=== PATIENT | female | born 1960 | race Caucasian/White ===

== ENCOUNTER 2017-09-05 08:00 | Outpatient (CLI) | payer OTHER ==
[2017-09-05 16:07] LABS: EOSINOPHILS # (AUTO) 0.1 10^3/uL (0.0-0.7); HCT - HEMATOCRIT 41.9 % (37.0-47.0); HGB - HEMOGLOBIN 13.7 g/dL (12.0-16.0); LYMPHOCYTES # (AUTO) 1.1 10^3/uL (1.5-3.5); LYMPHOCYTES % (AUTO) 23.5 %; MEAN CORPUSCULAR HEMOGLOBIN 28.8 pg (27.0-31.0); MEAN CORPUSCULAR HGB CONC 32.6 g/dL (32.0-36.0); MEAN CORPUSCULAR VOLUME 88.3 fL (81.0-99.0); MEAN PLATELET VOLUME 8.9 fL (7.9-10.8); MONOCYTES # (AUTO) 0.5 10^3/uL (0.0-1.0); MONOCYTES % (AUTO) 10.5 %; NEUTROPHILS # (AUTO) 2.9 10^3/uL (1.5-6.6); RED BLOOD COUNT 4.75 10^6/uL (4.20-5.40); RED CELL DISTRIBUTION WIDTH 14.2 % (12.0-15.0); UNCORRECTED WHITE BLOOD COUNT 4.6 x10^3/uL; WHITE BLOOD COUNT 4.6 x10^3/uL (4.8-10.8)
[2017-09-05 17:03] LABS: ALBUMIN/GLOBULIN RATIO 1.4 (1.0-2.2); BILIRUBIN,TOTAL 0.4 mg/dL (0.2-1.0); BUN - BLOOD UREA NITROGEN 10 mg/dL (6-20); CALCIUM 8.6 mg/dL (8.5-10.3); CARBON DIOXIDE - CO2 24 mmol/L (21-32); CHLORIDE 108 mmol/L (101-111); CHOL/HDL RATIO 1.9 (<4.4); CHOLESTEROL 146 mg/dL; CREATININE 0.6 mg/dL (0.4-1.0); GFR - MDRD 104 (>89); GLUCOSE 87 mg/dL (70-100); HDL CHOLESTEROL 78 mg/dL; LDL/HDL RATIO 0.8 (<4.4); POTASSIUM 4.1 mmol/L (3.5-5.0); SODIUM 139 mmol/L (135-145); TOTAL PROTEIN 6.6 g/dL (6.7-8.2); TRIGLYCERIDES 46 mg/dL; VLDL CHOLESTEROL 9 mg/dL
[2017-09-05 17:25] LABS: HEMOGLOBIN A1C 0.5 g/dL
== END 2017-09-05 08:01 | disposition home or self-care (01) ==
LOC: LAB.WCP 08:00
PROVIDERS: ATTEND Family Medicine
DX: Z00.00 Encounter for general adult medical examination without abnormal findings (principal)
CPT/HCPCS: 36415; 80053; 80061; 83036; 84443; 85025

== ENCOUNTER 2017-10-15 12:52 | Outpatient (CLI) | payer OTHER ==
--- NOTE | 2017-10-17 08:54 | Mammography Report ---
DATE OF SERVICE: 10/15/2017 DIGITAL BILATERAL SCREENING MAMMOGRAM: 10/15/2017 COMPARISON: Mammogram 04/12/2016. INDICATION: Screening mammography. TECHNIQUE: Bilateral CC and MLO breast views. FINDINGS: The breast parenchyma is heterogeneously dense, which may limit the sensitivity of mammography. No dominant mass, architectural distortion, or concerning cluster of microcalcifications is seen. IMPRESSION: BIRADS category: 1, negative. RECOMMENDATION: Annual screening mammogram. STANDARD QUALIFYING STATEMENTS 1. This examination was reviewed with the aid of Computed-Aided Detection (CAD) . 2. A negative or benign imaging report should not delay biopsy if clinically suspicious findings are present. Consider surgical consultation if warranted. More than 5% of cancers are not identified by imaging. 3. Dense breasts may obscure an underlying neoplasm. TD: 10/16/2017 18:40 ROSAS
== END 2017-10-15 12:53 | disposition home or self-care (01) ==
LOC: DI 12:52
PROVIDERS: ATTEND Family Medicine
DX: Z12.31 Encounter for screening mammogram for malignant neoplasm of breast (principal)
CPT/HCPCS: 77067

== ENCOUNTER 2018-09-17 10:49 | Outpatient (CLI) | payer OTHER ==
[2018-09-17 11:19] LABS: BASOPHILS % (AUTO) 0.6 %; EOSINOPHILS # (AUTO) 0.1 10^3/uL (0.0-0.7); EOSINOPHILS % (AUTO) 2.2 %; HGB - HEMOGLOBIN 13.7 g/dL (12.0-16.0); LYMPHOCYTES # (AUTO) 1.2 10^3/uL (1.5-3.5); LYMPHOCYTES % (AUTO) 23.7 %; MEAN CORPUSCULAR HEMOGLOBIN 29.7 pg (27.0-31.0); MEAN CORPUSCULAR HGB CONC 33.6 g/dL (32.0-36.0); MEAN CORPUSCULAR VOLUME 88.5 fL (81.0-99.0); MEAN PLATELET VOLUME 7.7 fL (7.9-10.8); MONOCYTES # (AUTO) 0.4 10^3/uL (0.0-1.0); MONOCYTES % (AUTO) 7.4 %; NEUTROPHILS # (AUTO) 3.4 10^3/uL (1.5-6.6); NEUTROPHILS % (AUTO) 66.1 %; PLT - PLATELET COUNT 194 10^3/uL (130-450); RED BLOOD COUNT 4.62 10^6/uL (4.20-5.40); RED CELL DISTRIBUTION WIDTH 13.9 % (12.0-15.0); WHITE BLOOD COUNT 5.2 x10^3/uL (4.8-10.8)
[2018-09-17 11:38] LABS: ALBUMIN 4.6 g/dL (3.2-5.5); ALBUMIN/GLOBULIN RATIO 1.7 (1.0-2.2); ALKALINE PHOSPHATASE 95 IU/L (42-121); ALT ALANINE AMINOTRANSFERASE 14 IU/L (10-60); AST ASPARTATE AMINOTRANSFERASE 17 IU/L (10-42); BILIRUBIN,TOTAL 0.8 mg/dL (0.2-1.0); BUN - BLOOD UREA NITROGEN 14 mg/dL (6-20); CALCIUM 9.3 mg/dL (8.5-10.3); CARBON DIOXIDE - CO2 28 mmol/L (21-32); CHLORIDE 104 mmol/L (101-111); CHOL/HDL RATIO 2.3 (<4.4); CHOLESTEROL 163 mg/dL; CREATININE 0.6 mg/dL (0.4-1.0); GFR - MDRD 103 (>89); GLUCOSE 92 mg/dL (70-100); HDL CHOLESTEROL 70 mg/dL; LDL CHOLESTEROL,CALCULATED 82 mg/dL; LDL/HDL RATIO 1.2 (<4.4); SODIUM 138 mmol/L (135-145); TOTAL PROTEIN 7.3 g/dL (6.7-8.2); VLDL CHOLESTEROL 11 mg/dL
[2018-09-17 11:39] LABS: HB2 TOTAL 14.8 g/dL; HEMOGLOBIN A1C 0.49 g/dL; HEMOGLOBIN A1C % 5.2 % (4.6-6.2)
== END 2018-09-17 10:50 | disposition home or self-care (01) ==
LOC: LAB 10:49
PROVIDERS: ATTEND Family Medicine
DX: Z00.00 Encounter for general adult medical examination without abnormal findings (principal); R07.9 Chest pain, unspecified
CPT/HCPCS: 36415; 80053; 80061; 83036; 83721; 84443; 84484; 85025

== ENCOUNTER 2018-09-25 10:49 | Outpatient (CLI) | payer OTHER ==
[2018-09-25] MEDS ORDERED: REGADENOSON 0.4 MG/5 ML SYRINGE IVP ONE (13:33)
--- NOTE | 2018-09-25 15:15 | CARDIAC PROCEDURE NOTE ---
DATE OF SERVICE: 09/25/2018 Physician: Mera Panchal MD, [facility] INDICATION: Chest pain. CARDIAC RISK FACTORS: Hypertension, family history of heart disease. SUMMARY: After signing informed consent, the patient underwent a Lexiscan pharmaceutical stress test with nuclear myocardial imaging. Resting heart rate: 76, peak heart rate: 118. Resting blood pressure: 150/84, peak blood pressure: 163/82 (the patient did not take her Metoprolol earlier this day). Lexiscan was infused per protocol. The patient developed brief shortness of breath, flushing and a headache, which subsided spontaneously at 4 minutes. The patient had 2/10 chest pain pretest and it was unchanged throughout the entire test and continued after testing was done. RESTING EKG: Normal sinus rhythm, within normal limits. EKG AT [facility]: [address] depressions in leads II, III, AVF, and V3 - V4, and [address] depression in V5 - V6. SUMMARY 1. Blood pressure poorly controlled on this day because of not taking Metoprolol. 2. Significant ischemia by EKG criteria, on this pharmaceutical stress test. 3. Atypical chest pain for angina, as it was present pre, during and post testing. 4. Nuclear images reported separately. cc: Shawanda Interiano MD TD: 09/25/2018 14:01 MTDD
--- NOTE | 2018-09-25 16:33 | Nuclear Medicine Report ---
Reason: CHEST PAIN Procedure Date: 09/25/2018 Accession Number: [id number] / [id number] Procedure: NM - Myocardial Perfusion STR/RST CPT Code: FULL RESULT: EXAM: SINGLE-ISOTOPE PHARMACOLOGICAL STRESS TEST WITH REGADENOSON. SINGLE-ISOTOPE AND ONE-DAY REST/STRESS MYOCARDIAL PERFUSION SCANS WITH TOMOGRAPHIC IMAGING, QUANTITATIVE ANALYSIS, WALL MOTION ANALYSIS AND CALCULATION OF EJECTION FRACTION. EXAM DATE: 09/25/2018 03:52 PM. CLINICAL HISTORY: CHEST PAIN. COMPARISON: None available. TECHNIQUE: After the intravenous administration of 9.9 mCi of Tc-99m sestamibi, a rest myocardial perfusion scan was done with tomography. Motion correction was applied when appropriate. After an appropriate delay, pharmacological stress was performed with the infusion of 0.4 mg regadenoson per protocol. According to protocol, 37 mCi of Tc-99m sestamibi was injected for stress myocardial perfusion scan. Motion correction was applied when appropriate. Gated tomographic images were obtained for wall motion analysis and computation of left ventricular ejection fraction. FINDINGS: On visual analysis, no convincing significant fixed or reversible perfusion defects. Computer analysis: Summed stress score 6 Summed rest score 1 Summed difference score 5 Wall motion analysis demonstrates no focal wall motion abnormality. The left ventricular end-diastolic volume is 38 cc. The left ventricular end-systolic volume is 4 cc. The left ventricular ejection fraction is calculated to be 89%. IMPRESSION: 1. On visual analysis, no convincing significant fixed or reversible perfusion defects. 2. Left ventricular ejection fraction of 89% (probably an overestimate). 3. Normal segmental and global wall motion. 4. Normal left ventricular cavity size, no change with stress. 5. Based on computer analysis, mildly abnormal study with moderate ischemia. RADIA
== END 2018-09-25 10:50 | disposition home or self-care (01) ==
LOC: DI 10:49
PROVIDERS: ATTEND Family Medicine
DX: I25.9 Chronic ischemic heart disease, unspecified (principal); I10 Essential (primary) hypertension; Z82.49 Family history of ischemic heart disease and other diseases of the circulatory system
CPT/HCPCS: 78452; 93017; A9500; J2785

== ENCOUNTER 2018-10-16 16:23 | Outpatient (CLI) | payer OTHER | END 2018-10-16 16:24 | disposition home or self-care (01) | LOC: LAB 16:23 | PROVIDERS: ATTEND Family Medicine | DX: R06.09 Other forms of dyspnea (principal); R07.9 Chest pain, unspecified | CPT/HCPCS: 36415; 85379; 85651; 86140 ==

== ENCOUNTER 2018-11-19 16:52 | Outpatient (CLI) | payer OTHER ==
--- NOTE | 2018-11-23 13:08 | Mammography Report ---
Reason: Annual Screening Procedure Date: 11/19/2018 Accession Number: [id number] / [id number] Procedure: [facility] - Screening Mammo w/Vishal CPT Code: FULL RESULT: EXAM: Screening Mammo w/Vishal DATE: 11/19/2018 5:20 PM CLINICAL HISTORY: Routine screening TECHNIQUE: Bilateral CC and MLO views were obtained. COMPARISON: 10/15/2017, 04/12/2016, 06/14/2015, 06/01/2015, and 03/24/2014 FINDINGS: There are scattered fibroglandular densities. There has been a progressive increase in fatty replacement of the breast tissue.. No new suspicious masses, clustered microcalcifications, or regions of architectural distortion are identified. IMPRESSION: Benign findings RECOMMENDATION: Routine annual screening unless otherwise clinically indicated. BIRADS CATEGORY 2: Benign findings STANDARD QUALIFYING STATEMENTS: 1. This examination was not reviewed with the aid of Computer-Aided Detection (CAD). 2. A negative or benign imaging report should not delay biopsy if clinically suspicious findings are present. Consider surgical consultation if warrented. More than 5% of cancers are not identified by imaging. 3. Dense breasts may obscure an underlying neoplasm. 4. This examination was reviewed with the aid of 3D breast imaging (tomosynthesis).
== END 2018-11-19 16:53 | disposition home or self-care (01) ==
LOC: DI 16:52
DX: Z12.31 Encounter for screening mammogram for malignant neoplasm of breast (principal)
CPT/HCPCS: 77063; 77067

== ENCOUNTER 2019-04-08 10:46 | Outpatient (CLI) | payer OTHER ==
[2019-04-08] MEDS ORDERED: IOVERSOL 320 50 ML VIAL ONE (10:57)
[2019-04-08] MEDS ORDERED: IOVERSOL 320 100 ML VIAL IVP ONE ×2 (10:57→13:23)
[2019-04-08 11:10] LABS: BASOPHILS % (AUTO) 0.4 %; EOSINOPHILS # (AUTO) 0.2 10^3/uL (0.0-0.7); EOSINOPHILS % (AUTO) 2.1 %; LYMPHOCYTES # (AUTO) 1.6 10^3/uL (1.5-3.5); LYMPHOCYTES % (AUTO) 22.1 %; MEAN CORPUSCULAR HGB CONC 31.9 g/dL (32.0-36.0); MEAN CORPUSCULAR VOLUME 91.1 fL (81.0-99.0); MEAN PLATELET VOLUME 10.1 fL (7.9-10.8); MONOCYTES # (AUTO) 0.6 10^3/uL (0.0-1.0); MONOCYTES % (AUTO) 8.4 %; NEUTROPHILS # (AUTO) 4.7 10^3/uL (1.5-6.6); NEUTROPHILS % (AUTO) 66.9 %; PLT - PLATELET COUNT 175 10^3/uL (130-450); RED BLOOD COUNT 4.82 10^6/uL (4.20-5.40); RED CELL DISTRIBUTION WIDTH 14.3 % (12.0-15.0)
[2019-04-08 11:28] LABS: ALBUMIN 4.5 g/dL (3.2-5.5); ALBUMIN/GLOBULIN RATIO 1.5 (1.0-2.2); BILIRUBIN,TOTAL 0.6 mg/dL (0.2-1.0); CALCIUM 9.9 mg/dL (8.5-10.3); CREATININE 0.6 mg/dL (0.4-1.0); TOTAL PROTEIN 7.5 g/dL (6.7-8.2)
--- NOTE | 2019-04-08 12:29 | CT Report ---
Reason: ABDOMINAL PAIN,LEFT UPPER QUADRANT,PULSATILE ABODM Procedure Date: 04/08/2019 Accession Number: [id number] / [id number] Procedure: CT - Abdomen/Pelvis W CPT Code: FULL RESULT: EXAM: CT ABDOMEN AND PELVIS EXAM DATE: 04/08/2019 12:04 PM. CLINICAL HISTORY: Abdominal pain, left upper quadrant, pulsatile abdomen. COMPARISONS: None. TECHNIQUE: Routine helical CT imaging was performed through the abdomen and pelvis. IV contrast: 100 mL Omnipaque 320. Enteric contrast: Yes. Reconstructions: Coronal and sagittal. In accordance with CT protocol optimization, one or more of the following dose reduction techniques were utilized for this exam: automated exposure control, adjustment of mA and/or KV based on patient size, or use of iterative reconstructive technique. FINDINGS: Lung Bases: Unremarkable. Liver: Normal. No masses. Gallbladder/Bile Ducts: Unremarkable. Spleen: Normal. Pancreas: Normal. Adrenal Glands: Normal. Kidneys: Normal. No masses or hydronephrosis. Peritoneal Cavity/Bowel: There is no bowel obstruction. There is no free fluid or free air. There is no lymphadenopathy. The appendix is not visualized; however, there are no inflammatory changes in the region of the cecum and there is no nearby mesenteric lymphadenopathy. Pelvic Organs: The bladder is markedly distended. The bladder and visualized pelvic organs are within normal limits. Vasculature: No aneurysms or other significant abnormality. Bones: No significant abnormality. Other: None. IMPRESSION: No evidence of abdominal aortic aneurysm. Markedly distended urinary bladder. RADIA
[2019-04-08] MEDS ORDERED: IOVERSOL 320 50 ML VIAL PO ONE (13:23)
[2019-04-08 16:36] LABS: H. PYLORIS ANTIGEN STL NEGATIVE (Negative)
== END 2019-04-08 10:47 | disposition home or self-care (01) ==
LOC: DI 10:46
PROVIDERS: ATTEND Family Medicine
DX: R10.12 Left upper quadrant pain (principal); R19.00 Intra-abdominal and pelvic swelling, mass and lump, unspecified site; R07.9 Chest pain, unspecified; I10 Essential (primary) hypertension; N32.89 Other specified disorders of bladder
CPT/HCPCS: 36415; 74177; 80053; 82150; 83690; 85025; 87338; Q9967

== ENCOUNTER 2019-07-14 10:24 | Day surgery (SDC) | payer OTHER ==
[2019-07-14] MEDS ORDERED: LACTATED RINGERS 1,000 ML IV ONE (11:26)
[2019-07-14] MEDS ORDERED: BENZOCAINE/TETRACAINE/BUTAMBEN 20 GM TOP ONE (12:45)
[2019-07-14] MEDS ORDERED: LIDO GARGLE 30 ML BOTTLE TOP ONE (12:45)
[2019-07-14] MEDS ORDERED: LIDO GARGLE 30 ML BOTTLE ONE (12:56)
[2019-07-14 13:41] VITALS: BP 111/65
== END 2019-07-14 10:25 | disposition home or self-care (01) ==
LOC: SDS 10:24
PROVIDERS: ATTEND Surgery
PROC: 0DB68ZX Excision of Stomach, Via Natural or Artificial Opening Endoscopic, Diagnostic (ICD-10-PCS; 2019-07-14)
PROC: 0DB98ZX Excision of Duodenum, Via Natural or Artificial Opening Endoscopic, Diagnostic (ICD-10-PCS; principal; 2019-07-14 11:15)
DX: K44.9 Diaphragmatic hernia without obstruction or gangrene (principal); K22.0 Achalasia of cardia; K21.9 Gastro-esophageal reflux disease without esophagitis; I10 Essential (primary) hypertension
CPT/HCPCS: 43239; A9270; J7120

== ENCOUNTER 2019-10-28 17:11 | Outpatient (CLI) | payer OTHER ==
[2019-10-28 17:30] LABS: BILIRUBIN,URINE NEGATIVE (NEGATIVE); GLUCOSE, URINE (UA) NEGATIVE (NEGATIVE); KETONES,URINE (UA) NEGATIVE (NEGATIVE); LEUKOCYTE ESTERASE, URINE NEGATIVE (NEGATIVE); NITRITE,URINE NEGATIVE (NEGATIVE); OCCULT BLOOD,URINE TRACE-LYSE (NEGATIVE); PROTEIN,URINE NEGATIVE (NEGATIVE); UROBILINOGEN,URINE 0.2 (NORMAL) E.U./dL (NORMAL)
[2019-10-28 17:35] LABS: CLARITY,URINE CLEAR (CLEAR)
== END 2019-10-28 17:12 | disposition home or self-care (01) ==
LOC: LAB 17:11
PROVIDERS: ATTEND Psychiatry & Neurology Neurology
DX: G35 Multiple sclerosis (principal)
CPT/HCPCS: 81001; 81003; 87086

== ENCOUNTER 2019-11-11 16:40 | Outpatient (CLI) | payer OTHER ==
[2019-11-11 17:02] LABS: BILIRUBIN,URINE NEGATIVE (NEGATIVE); GLUCOSE, URINE (UA) NEGATIVE (NEGATIVE); KETONES,URINE (UA) NEGATIVE (NEGATIVE); LEUKOCYTE ESTERASE, URINE SMALL (NEGATIVE); NITRITE,URINE NEGATIVE (NEGATIVE); OCCULT BLOOD,URINE TRACE-INTA (NEGATIVE); PH,URINE 6.5 PH (5.0-7.5); PROTEIN,URINE NEGATIVE (NEGATIVE); UROBILINOGEN,URINE 0.2 (NORMAL) E.U./dL (NORMAL)
[2019-11-11 17:13] LABS: CLARITY,URINE CLEAR (CLEAR); RBC,URINE None Seen /HPF (0-5); SQUAMOUS EPITHELIAL CELL,UR RARE Squamous (<= Few); WBC CLUMPS,URINE PRESENT
[2019-11-11 17:14] LABS: BACTERIA,URINE None Seen /HPF (None Seen)
== END 2019-11-11 16:41 | disposition home or self-care (01) ==
LOC: LAB 16:40
PROVIDERS: ATTEND Psychiatry & Neurology Neurology
DX: G35 Multiple sclerosis (principal)
CPT/HCPCS: 81001; 87086

== ENCOUNTER 2020-03-30 16:22 | Outpatient (CLI) | payer OTHER ==
[2020-03-30 17:06] LABS: BASOPHILS % (AUTO) 0.5 %; EOSINOPHILS # (AUTO) 0.2 10^3/uL (0.0-0.7); EOSINOPHILS % (AUTO) 2.8 %; HGB - HEMOGLOBIN 13.7 g/dL (12.0-16.0); LYMPHOCYTES # (AUTO) 1.3 10^3/uL (1.5-3.5); LYMPHOCYTES % (AUTO) 22.4 %; MEAN CORPUSCULAR HEMOGLOBIN 30.3 pg (27.0-31.0); MEAN CORPUSCULAR HGB CONC 33.2 g/dL (32.0-36.0); MEAN CORPUSCULAR VOLUME 91.4 fL (81.0-99.0); MEAN PLATELET VOLUME 9.9 fL (7.9-10.8); MONOCYTES # (AUTO) 0.6 10^3/uL (0.0-1.0); MONOCYTES % (AUTO) 10.7 %; NEUTROPHILS # (AUTO) 3.8 10^3/uL (1.5-6.6); NEUTROPHILS % (AUTO) 63.3 %; PLT - PLATELET COUNT 202 10^3/uL (130-450); RED BLOOD COUNT 4.52 10^6/uL (4.20-5.40); RED CELL DISTRIBUTION WIDTH 13.8 % (12.0-15.0)
== END 2020-03-30 16:23 | disposition home or self-care (01) ==
LOC: LAB 16:22
PROVIDERS: ATTEND Psychiatry & Neurology Neurology
DX: G35 Multiple sclerosis (principal)
CPT/HCPCS: 36415; 81599; 82784; 85025; 86355; 86357; 86359; 86360

== ENCOUNTER 2020-06-23 15:23 | Outpatient (CLI) | payer OTHER ==
--- NOTE | 2020-06-26 12:07 | Mammography Report ---
BILATERAL DIGITAL SCREENING MAMMOGRAM 3D/2D: 06/23/2020 CLINICAL: Routine screening. Comparison is made to exams dated: 10/15/2017 mammogram, 11/19/2018 mammogram - [facility], 06/01/2015 mammogram - [facility], and 04/12/2016 mammogram - [facility]. The tissue of both breasts is heterogeneously dense. This may lower the sens itivity of mammography. No significant masses, calcifications, or other findings are seen in either breast. There has been no significant interval change. IMPRESSION: NEGATIVE There is no mammographic evidence of malignancy. A 1 year screening mammogram is recommended. This exam was interpreted at Station ID: [id number]. NOTE: For mammograms, a report in lay terms will be sent to the patient. Approximately 15% of breast malignancies will not be visualized mammographically. In the management of a palpable breast mass, a negative mammogram must not discourage biopsy of a clinically suspicious lesion. Electronically Signed By: Tomi wilde/aliyah:06/23/2020 16:57:14 ACR BI-RADS Category 1: Negative 3341F PARENCHYMAL PATTERN: (D) - The breast(s) demonstrate(s) heterogeneously dense fibroglandular kayode zambrano. BI-RADS CATEGORY: (1) - 1 RECOMMENDATION: (ANNUAL) - Recommend routine annual screening mammography. [id number] 1 year screening LATERALITY: (B)
== END 2020-06-23 15:24 | disposition home or self-care (01) ==
LOC: DI.N 15:23
DX: Z12.31 Encounter for screening mammogram for malignant neoplasm of breast (principal)
CPT/HCPCS: 77063; 77067

== ENCOUNTER 2020-09-20 16:24 | Outpatient (CLI) | payer OTHER | END 2020-09-20 16:25 | disposition home or self-care (01) | LOC: LAB 16:24 | PROVIDERS: ATTEND Psychiatry & Neurology Neurology | DX: G35 Multiple sclerosis (principal) | CPT/HCPCS: 36415; 81599; 82784; 86355; 86357; 86359; 86360 ==

== ENCOUNTER 2020-10-17 16:37 | Outpatient (CLI) | payer OTHER ==
[2020-10-17 16:50] LABS: BASOPHILS % (AUTO) 0.6 %; EOSINOPHILS # (AUTO) 0.2 10^3/uL (0.0-0.7); EOSINOPHILS % (AUTO) 2.5 %; HGB - HEMOGLOBIN 14.1 g/dL (12.0-16.0); LYMPHOCYTES # (AUTO) 1.8 10^3/uL (1.5-3.5); LYMPHOCYTES % (AUTO) 27.5 %; MEAN CORPUSCULAR HEMOGLOBIN 30.3 pg (27.0-31.0); MEAN CORPUSCULAR HGB CONC 32.9 g/dL (32.0-36.0); MEAN CORPUSCULAR VOLUME 92.1 fL (81.0-99.0); MEAN PLATELET VOLUME 9.9 fL (7.9-10.8); MONOCYTES # (AUTO) 0.5 10^3/uL (0.0-1.0); MONOCYTES % (AUTO) 7.7 %; NEUTROPHILS % (AUTO) 61.5 %; PLT - PLATELET COUNT 200 10^3/uL (130-450); RED BLOOD COUNT 4.66 10^6/uL (4.20-5.40); RED CELL DISTRIBUTION WIDTH 13.6 % (12.0-15.0); WHITE BLOOD COUNT 6.5 x10^3/uL (4.8-10.8)
== END 2020-10-17 16:38 | disposition home or self-care (01) ==
LOC: LAB 16:37
PROVIDERS: ATTEND Psychiatry & Neurology Neurology
DX: G35 Multiple sclerosis (principal)
CPT/HCPCS: 85025

== ENCOUNTER 2022-10-22 16:49 | Emergency (ER) | payer OTHER ==
[2022-10-22 18:07] LABS: BASOPHILS # (AUTO) 0.1 10^3/uL (0.0-0.1); BASOPHILS % (AUTO) 0.6 %; EOSINOPHILS # (AUTO) 0.2 10^3/uL (0.0-0.7); EOSINOPHILS % (AUTO) 1.9 %; HCT - HEMATOCRIT 43.1 % (37.0-47.0); HGB - HEMOGLOBIN 14.1 g/dL (12.0-16.0); LYMPHOCYTES # (AUTO) 1.7 10^3/uL (1.5-3.5); LYMPHOCYTES % (AUTO) 16.8 %; MEAN CORPUSCULAR HEMOGLOBIN 30.5 pg (27.0-31.0); MEAN CORPUSCULAR HGB CONC 32.7 g/dL (32.0-36.0); MEAN CORPUSCULAR VOLUME 93.3 fL (81.0-99.0); MEAN PLATELET VOLUME 9.6 fL (7.9-10.8); MONOCYTES # (AUTO) 0.5 10^3/uL (0.0-1.0); MONOCYTES % (AUTO) 5.1 %; NEUTROPHILS # (AUTO) 7.6 10^3/uL (1.5-6.6); PLT - PLATELET COUNT 193 10^3/uL (130-450); RED BLOOD COUNT 4.62 10^6/uL (4.20-5.40); RED CELL DISTRIBUTION WIDTH 13.2 % (12.0-15.0); WHITE BLOOD COUNT 10.1 x10^3/uL (4.8-10.8)
[2022-10-22 18:22] LABS: INR 1.1 (0.8-1.2)
[2022-10-22 18:29] LABS: PARTIAL THROMBOPLASTIN TIME 29.3 secs (24.9-33.3)
[2022-10-22 20:10] VITALS: BP 130/80
--- NOTE | 2022-10-22 20:46 | ED Physician Documentation ---
History of Present Illness - Stated complaint Stated Complaint: NOSE BLEED POST SURG - Chief complaint Chief Complaint: Heent - History obtained from History obtained from: Patient - Additonal information Additional information: 61-year-old female here for nasal bleeding. She is status post septoplasty on 17 October. 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 She denies coughing sneezing or attempting to blow her nose. She had a difficult time getting the bleeding to slow but eventually slowed by using a nasal clamp as well as gauze compress anteriorly. She is followed by Dr. Gomes ENT with [facility]. He is scheduled to see him in follow-up on the Review of Systems Constitutional: reports: Reviewed and negative Nose: reports: Epistaxis Throat: reports: Reviewed and negative Cardiac: reports: Reviewed and negative Respiratory: reports: Reviewed and negative GI: reports: Reviewed and negative PD PAST MEDICAL HISTORY - Past Medical History Cardiovascular: Hypertension Respiratory: None Endocrine/Autoimmune: None GI: None : None HEENT: None Psych: Depression Musculoskeletal: None Derm: None - Past Surgical History General: Colonoscopy - Present Medications Home Medications: Ambulatory Orders Medication Instructions Recorded Confirmed DULoxetine [Cymbalta] 1 tab ORAL DAILY 07/14/19 07/14/19 atenoloL [Atenolol] 1 tab ORAL DAILY 07/14/19 07/14/19 - Allergies Allergies/Adverse Reactions: Allergies Allergy/AdvReac Type Severity Reaction Status Date / Time No Known Drug Allergies Allergy Verified 10/22/22 17:19 PD ED PE NORMAL - General General: Alert and oriented X 3, No acute distress, Well developed/nourished - HEENT HEENT: Atraumatic, Other (Large gelatinous clot seen in posterior oropharynx though no active bleeding. There is a large maroon clot extending from the right nares and dried smaller clot in the left nares. When posterior pharynx exam is examined no active bleeding is noted) Results - Vitals Vitals: Vital Signs - 24 hr 10/22/22 10/22/22 10/22/22 17:21 18:40 20:00 Temperature 36.3 C L 36.5 C Heart Rate 77 70 70 Respiratory 18 16 16 Rate Blood Pressure 155/100 H 134/79 H 130/80 O2 Saturation 100 99 100 Oxygen O2 Source Room air - Labs Labs: Laboratory Tests 10/22/22 10/22/22 17:59 17:59 WBC 10.1 RBC 4.62 Hgb 14.1 Hct 43.1 MCV 93.3 MCH 30.5 MCHC 32.7 RDW 13.2 Plt Count 193 MPV 9.6 Neut # (Auto) 7.6 H Lymph # (Auto) 1.7 [place] # (Auto) 0.5 Eos # (Auto) 0.2 Baso # (Auto) 0.1 Absolute Nucleated RBC 0.00 Nucleated RBC % 0.0 PT 12.0 INR 1.1 APTT 29.3 PD Medical Decision Making - ED course Complexity details: considered differential, d/w patient, d/w wireless consultant (Ken) ED course: 61-year-old female presents emergency department for evaluation of epistaxis in the setting of recent septoplasty. She is scheduled to see her ENT in less than 48 hours time. On exam she has a large clot in the right nares and a smaller clot in the left nares. There is a large clot in the posterior oropharynx however there was no active bleeding noted. We were able to get much of the bleeding controlled by putting pressure with gauze anteriorly as well as using a nasal clamp. I did speak with Dr. Rogers the ENT on-call with [facility]. Given that the bleeding is mostly controlled and she has unremarkable labs for anemia. No hypotension or tachycardia she is clinically stable to follow-up tomorrow in the ENT clinic with her surgeon. A message will be sent to her surgeon. I discussed this plan with the patient and her and she is agreeable. We also discussed the usual emergent return precautions for worsening symptoms Departure - Departure Disposition: 01 Home, Self Care Clinical Impression: Nasal bleeding, Status post nasal septoplasty Comments: Lucie ramirez came to the emergency department today because you began having nasal bleeding after recent septoplasty. We did check your CBC and coagulation panels and they are normal. You do have a large clot in the right anterior nose as well as a larger 1 in your posterior oropharynx. We have elected not to remove these clots as they m ay actually be tamponading some of the bleeding. I spoke with Dr. Rogers the ear nose throat doctor on-call for [facility]. He will send a message to Dr. Gomes clinic to request you be seen in follow-up tomorrow.
== END 2022-10-22 21:18 | disposition home or self-care (01) ==
LOC: ED 16:49
DX: J95.830 Postprocedural hemorrhage of a respiratory system organ or structure following a respiratory system procedure (principal); Y83.9 Surgical procedure, unspecified as the cause of abnormal reaction of the patient, or of later complication, without mention of misadventure at the time of the procedure; I10 Essential (primary) hypertension
CPT/HCPCS: 36415; 85025; 85610; 85730; 99282; 99283